=== PATIENT | female | born 1955 | race Caucasian/White ===

== ENCOUNTER → 2018-03-03 | Outpatient (CLI) | payer OTHER ==
[~2018-03-03] MED LIST: ALEGRA; CALC-891 PO; CHOL200074 PO; FLUT16SP20 NS; GLUC500C29 PO; IBUP800T37 PO; MULT1CAP41 PO; OLOOD OD; OMEG-11 PO; PER PO
--- NOTE | 2018-03-07 08:30 | RADIOLOGY IMAGING REPORT ---
FACILITY: PATIENT NAME: SHREYAS CHEN : [id number] MR: [id number] V: [id number] EXAM DATE: ORDERING PHYSICIAN: LISY DAWSON TECHNOLOGIST: Raquel Alcantar PROCEDURE:BILATERAL DIGITAL SCREENING MAMMOGRAM WITH CAD ASSISTED INTERPRETATION & 3D TOMOSYNTHESIS COMPARISON:04/30/16, 04/06/11. INDICATIONS:SCREENINIG FINDINGS: The breasts have scattered fibroglandular parenchymal densities. There are no mammographic findings concerning for malignancy. No significant change from priors. DIAGNOSTIC CATEGORY 1--NEGATIVE. RECOMMENDATIONS: ROUTINE MAMMOGRAM AND CLINICAL EVALUATION IN 1 YR. IMPRESSION: BIRADS 1: Negative. Dictated by: David Rivers on 03/04/2018 at 11:43 Transcribed by: ADE on 03/04/2018 at 11:52 Approved by: Russ Yates M.D. on 03/07/2018 at 8:29 [facility]
== END ==
LOC: MAMO 01:10
PROVIDERS: ATTEND Nurse Practitioner Family
DX: Z12.31 Encounter for screening mammogram for malignant neoplasm of breast (principal)
CPT/HCPCS: 77063; 77067

== ENCOUNTER → 2018-04-18 | Outpatient (CLI) | payer OTHER ==
--- NOTE | 2018-04-18 15:08 | RADIOLOGY IMAGING REPORT ---
FACILITY: [facility] PATIENT NAME: Marlin Mishra : 1955 MR: [id number] V: [id number] EXAM DATE: ORDERING PHYSICIAN: LISY DAWSON TECHNOLOGIST: Location: [facility] [place] Patient: Marlin Mishra : 1955 Visit/Account:[id number] Date of Sevice: 04/18/2018 DEXA Scan Clinical history: Postmenopausal osteoporosis. Comparison: DEXA scan from 04/30/2016. LUMBAR SPINE: The bone mineral density (BMD) measured from L1-L4 correlates with a Z-score of -1.6 and a T-score of -3.4 which is osteoporosis as defined by the World Health Organization. The corresponding risk of f racture in the lumbar spine is 8-12 times increased compared with a young adult reference population. This value has decreased by one % since the prior study. More than 5% change is considered signifi cant. HIP: Bone mineral density (BMD) measured in the LEFT total hip region correlates with a Z-score -0.2 and a T-score of -1.6 which is osteopenia as defined by the World Health Organization. The corresponding risk of fracture in the hip is 3-4 times increased compared to a young adult reference population. Th is value has decrease by 1.3 % since the prior study. More than 5% change is considered significant. T score left femoral neck -2.2 Bone mineral density (BMD) measured in the Femoral Neck region measures 0.726 g/cm?. IMPRESSION: 1. Lumbar spine: Osteoporosis. There has been 1% decrease in the bone mineral density since the pre vious exam. 2. Left Total Hip: Osteopenia. There has been 1.3% decrease in the bone mineral density since the p revious exam. 3. Femoral Neck: Bone Mineral Density is 0.726 g/cm? The next DEXA scan of this patient should include the following sites: L1-L4 and the left hip. FRAX? WHO Fracture Risk Assessment Tool link: <http://www.shef.ac.uk/FRAX/tool.jsp?locationValue=9> PLEASE NOTE: 1) The World Health Organization defines low BMD as follows: T-score Normal > -1 Osteopenia < -1 and > -2.5 Osteoporosis < -2.5 without fractures Established osteoporosis < -2.5 with fractures 2) In general, you may wish to consider: Diagnosis Treatment Follow-up DEXA Normal BMD Prevention 2-3 years Osteopenia Prevention/therapy 1-2 years Osteoporosis Therapy Yearly 3) Fracture risk estimated from the T-score is more accurate for vertebral fractures (often spontane ous) than for hip fractures. Report Dictated By: Jackie Degroot MD at 04/18/2018 3:02 PM Report E-Signed By: Jackie Degroot MD at 04/18/2018 3:04 PM WSN:LORRAINE
== END ==
LOC: RAD 00:54
PROVIDERS: ATTEND Nurse Practitioner Family
DX: M81.0 Age-related osteoporosis without current pathological fracture (principal); M85.80 Other specified disorders of bone density and structure, unspecified site
CPT/HCPCS: 77080